=== PATIENT | female | born 1955 | race Caucasian/White ===

== ENCOUNTER 2016-07-02 00:02 | Inpatient (IN) | payer OTHER ==
[2016-07-02 10:06] LABS: % IMMATURE GRANULYOCYTES 0.2 % (0.0-1.1); ABSOLUTE IMMATURE GRANULOCYTES 0.01 10^3/uL (0.00-0.10); ADD DIFF? NO; ADD MORPH? NO; ADD SCAN? NO; ATYPICAL LYMPHOCYTE FLAG 0 (0-99); FRAGMENT RBC FLAG 0 (0-99); HEMATOCRIT 43.3 % (38.0-47.0); HEMOGLOBIN 14.1 g/dL (12.6-16.3); LEFT SHIFT FLG 0 (0-99); LIPEMIA HEMOLYSIS FLAG 80 (0-99); MEAN CELL HEMOGLOBIN 30.1 pg (27.9-34.1); MEAN CELL HEMOGLOBIN CONCENTR. 32.6 g/dL (32.4-36.7); MEAN CELL VOLUME 92.3 fL (81.5-99.8); MEAN PLATELET VOLUME 10.8 fL (8.7-11.7); PLATELET CLUMPS FLAG 20 (0-99); PLATELET COUNT 227 10^3/uL (150-400); RED BLOOD CELL COUNT 4.69 10^6/uL (4.18-5.33); RED CELL DISTRIBUTION WIDTH 15.4 % (11.5-15.2)
[2016-07-02 10:21] LABS: INR 2.78 (0.83-1.16); PROTIME(PATIENT) 29.7 SEC (12.0-15.0)
[2016-07-02 10:24] LABS: ANION GAP 10 mEq/L (8-16); CALCIUM 8.7 mg/dL (8.5-10.4); CARBON DIOXIDE 20 mEq/l (22-31); CHLORIDE 109 mEq/L (97-110); CREATININE 0.9 mg/dL (0.6-1.0); GLOMERULAR FILTRATION RATE > 60; GLUCOSE 105 mg/dL (70-100); POTASSIUM 4.9 mEq/L (3.5-5.2); SODIUM 139 mEq/L (134-144)
--- NOTE | 2016-07-02 10:35 | CPEKG ---
Heart Rate: 98 RR Interval: 612 P-R Interval: 220 QRSD Interval: 80 QT Interval: 380 QTC Interval: 486 P [place]: 65 QRS [place]: 136 T Wave [place]: 84 EKG Severity - ABNORMAL ECG - EKG Impression: SINUS RHYTHM EKG Impression: FIRST DEGREE AV BLOCK EKG Impression: RIGHT AXIS DEVIATION EKG Impression: Right ventricular conduction defect EKG Impression: Resolution of supraventricular tachycardia since April 04, 2016 EKG Impression: LOW VOLTAGE IN FRONTAL LEADS EKG Impression: NONSPECIFIC T ABNORMALITIES, ANT-LAT LEADS EKG Impression: BORDERLINE PROLONGED QT INTERVAL Electronically Signed By: aMrk Quinones 02-Jul-2016 12:11:50
--- NOTE | 2016-07-02 11:01 | PDCARPN ---
Cardiology Progress Note Chief Complaint: Patient reports ongoing palpitations. Assessment/Plan: Assessment: Please see Dr. Salazar's office note dated 06/04/2016 for H&P. 61-year-old female with significant past history that includes type A aortic dissection with history repair and aortic valve replacement (mechanical) 1992, CABG in 1992 for 2 vessel bypass due to aortic dissection, asthma and history of TIAs. Been noting to have persistent AFib in which she resumed originally controlled with amiodarone, but due to her age, is not an adequate candidate for long-term usage. Admitted today for transition to sotalol. She denies of any chest pain or pressure, shortness of breath, lightheadedness, near-syncope or syncopal events. Reporting occasional palpitation. Physical examination she appears to be euvolemic, denies of any symptoms suggesting cardiac ischemia. Initial EKG done, laboratory studies done showing no anemia, normal electrolyte and renal function. INR 2.78 today. Most recent echocardiogram was done on 02/14/2016 showing normal LV systolic function with no wall motion abnormalities, EF 50%, diastolic dysfunction LA moderate to severely dilated, RA moderately to severely dilated, moderate MR, mild TR, normal gradient across mechanical aortic valve. RVSP mildly elevated at 40 mm Hg. Plan: 1. Paroxysmal atrial fibrillation: Hospitalized for sotalol loading, has been off of amiodarone for minimum 48 hours. Will start her on sotalol at 80 mg p.o. q.day. Will resume her home dosing of warfarin with planning daily INRs during hospitalization. Plan 2 hours post dosing EKGs to evaluate QTC. 2. Valvular heart disease: No signs CHF. Continue on anticoagulation of warfarin. 3. Coronary bypass: Had 2 vessel bypass when fixing aortic dissection and aortic valve repair. Denies of any symptoms suggesting ischemia. 4. Code status: Patient is a full code patient seen with Dr. Carrizales. 07/02/16 10:57 Subjective: patient reports ongoing episodes palpitations come on spontaneously with very racing heart rate, then dissipate. Denies of any lightheadedness, chest pressure, shortness of breath, near-syncope, or syncopal events. Reviewed/Discussed With: family, other (Dr Carrizales) Objective: Vital Signs (8 Hrs) Temp Pulse Resp BP Pulse Ox 07/02/16 10:55 36.8 C 67 18 101/58 L 95 Intake/Output (24 Hrs) 07/01/16 07/02/16 07/03/16 05:59 05:59 05:59 Other: Weight 63.503 kg Result Diagrams: 07/02/16 10:00 07/03/16 03:48 - Physical Exam Constitutional: WDWN, healthy appearing, no apparent distress Ears, Nose, Mouth, Throat: moist mucous membranes Cardiovascular: regular rate and rhythm, systolic murmur ( Left sternal border. Also noted a mechanical valvular click.), pulses symmetric bilat, No no rubs, No jugular vein distention, No carotid bruit Peripheral Pulses: 1+: dorsalis-pedis (R), dorsalis-pedis (L), 2+: carotid (R), carotid (L) Respiratory: clear to auscultate bilat, no crackles, no wheezes Gastrointestinal: normoactive bowel sounds Skin: no rashes, no edema Neurologic: AAOx3 Psychiatric: cooperative, interactive, following commands ICD10 Worksheet Patient Problems: Problems Problem Status Onset Paroxysmal atrial fibrillation Acute - ICD10 Problem Qualifiers (1) Paroxysmal atrial fibrillation
[2016-07-02] MEDS: SOTALOL HCL 80 MG TAB PO SCH ×2 (11:02→21:16)
[2016-07-02] MEDS ORDERED: ACETAMINOPHEN 325 MG TAB PO PRN (11:33)
--- NOTE | 2016-07-02 14:03 | CPEKG ---
Heart Rate: 64 RR Interval: 938 P-R Interval: 212 QRSD Interval: 78 QT Interval: 448 QTC Interval: 463 P [place]: 73 QRS [place]: 135 T Wave [place]: 84 EKG Severity - ABNORMAL ECG - EKG Impression: SINUS RHYTHM EKG Impression: LEFT POSTERIOR FASCICULAR BLOCK EKG Impression: Can't entirely rule out old anteroseptal myocardial infarction. EKG Impression: Probable left atrial abnormality EKG Impression: No significant change from July 02, 2016, 10: 34 other than rate. Electronically Signed By: Mark Quinones 02-Jul-2016 15:20:24
[2016-07-02] MEDS ORDERED: WARFARIN SODIUM 2.5 MG TAB PO SCH (21:00)
[2016-07-02] MEDS: METOPROLOL SUCCINATE XR 50 MG TAB PO SCH (21:14)
[2016-07-02] MEDS: ZOLPIDEM TARTRATE 5 MG TAB PO SCH (21:14)
--- NOTE | 2016-07-02 22:59 | CPEKG ---
Heart Rate: 68 RR Interval: 882 P-R Interval: 204 QRSD Interval: 82 QT Interval: 448 QTC Interval: 477 P [place]: 69 QRS [place]: 139 T Wave [place]: 94 EKG Severity - ABNORMAL ECG - EKG Impression: SINUS RHYTHM EKG Impression: PROBABLE RVH W/ SECONDARY REPOL ABNORMALITY EKG Impression: NONSPECIFIC T ABNORMALITIES, DIFFUSE LEADS EKG Impression: Probable left atrial abnormality EKG Impression: No significant change from July 02, 2016, 14:01 EKG Impression: Can't entirely rule out old anteroseptal myocardial infarction EKG Impression: Left posterior fascicular block Electronically Signed By: Mark Quinones 03-Jul-2016 06:27:08
[2016-07-03 04:03] LABS: INR 2.69 (0.83-1.16); PROTIME(PATIENT) 28.9 SEC (12.0-15.0)
[2016-07-03 04:18] LABS: ANION GAP 8 mEq/L (8-16); CALCIUM 8.6 mg/dL (8.5-10.4); CARBON DIOXIDE 23 mEq/l (22-31); CHLORIDE 107 mEq/L (97-110); CREATININE 0.9 mg/dL (0.6-1.0); GLOMERULAR FILTRATION RATE > 60; GLUCOSE 94 mg/dL (70-100); MAGNESIUM 2.1 mg/dL (1.6-2.3); POTASSIUM 4.7 mEq/L (3.5-5.2); SODIUM 138 mEq/L (134-144)
[2016-07-03] MEDS: ESCITALOPRAM OXALATE 10 MG TAB PO SCH (08:58)
[2016-07-03] MEDS: SOTALOL HCL 80 MG TAB PO SCH ×2 (08:59→20:54)
--- NOTE | 2016-07-03 10:17 | PDCARPN ---
Cardiology Progress Note Chief Complaint: Patient reports she is tired of being hospilization Assessment/Plan: Assessment: 61-year-old female with significant past history that includes type A aortic dissection history of repair, aortic valve replacement (mechanical) and reimplantation of 2 vessel due to dissection in 1992, asthma, and history of TIAs. Noted to have history of persistent atrial fibrillation, recently controlled with amiodarone, but due to her age not an adequate candidate for long-term usage. Admitted to the hospital for sotalol loading, denies of any adverse effects with medication. Continuous cardiac monitoring shown before 1st dose of sotalol, 5-10 second runs of SVT, possibly atrial tachycardia. None noted since then. QTC last p.m., after 2 doses of sotalol was 476 milliseconds. No malignant arrhythmias noted. Laboratory studies today show INR 2.69, potassium 4.7, creatinine 0.9, magnesium 2.1. Did call patient's PCP , Dr. Quinones, any has given the okay to decrease her Lexapro to 5 mg p.o. daily due to potential a prolonged QTC. Plan: 1. Paroxysmal atrial fibrillation: No AFib noted since starting sotalol dosing. No further runs of SVT. QTC acceptable. Continue on current sotalol loading at 80 mg p.o. twice daily. INR within normal limits, continue on home dosing of warfarin. 2. Valvular heart disease: Past history of aortic valve replacement during aortic dissection, mechanical, INR within normal limits. No signs of CHF. 3. History of aortic dissection: Status post repair, BP within normal limits. 4. 2 vessel bypass: status post aortic dissection an aortic valve repair, denies of any symptoms suggesting of ischemia. Plan for patient to finish last 2 dosages of sotalol, with 2 are post dosage electrocardiograms, last dosage tonight at 11:00 p.m., will plan on her to be monitored on telemetry through the night, and discharge in a.m. stable 07/03/16 10:14 Subjective: Patient denies of any chest pain, shortness of breath, palpitations, orthopnea, PND, edema, near-syncope, or syncopal. Reviewed/Discussed With: other (Dr Carrizales) Objective: Vital Signs (8 Hrs) Temp Pulse Resp BP Pulse Ox 07/03/16 08:14 36.9 C 61 17 90/56 L 89 L 07/03/16 04:00 36.7 C 63 19 107/57 L 92 Intake/Output (24 Hrs) 07/02/16 07/03/16 07/04/16 05:59 05:59 05:59 Intake Total 700 Balance 700 Intake: Oral (ml) 700 Other: Weight 63.503 kg Intake Quantity Yes Sufficient Number of Voids Toilet 2 Result Diagrams: 07/02/16 10:00 07/03/16 03:48 - Physical Exam Constitutional: WDWN, healthy appearing Ears, Nose, Mouth, Throat: moist mucous membranes Cardiovascular: regular rate and rhythm, no rubs, systolic murmur (2/6 systolic murmur noted along left sternal border, mechanical valve click noted.), pulses symmetric bilat, No jugular vein distention Peripheral Pulses: 1+: dorsalis-pedis (R), dorsalis-pedis (L), 2+: carotid (R), carotid (L) Respiratory: clear to auscultate bilat, no crackles, no wheezes, No reduced air movement Gastrointestinal: normoactive bowel sounds Skin: warm, no edema Neurologic: AAOx3 Psychiatric: cooperative, interactive ICD10 Worksheet Patient Problems: Problems Problem Status Onset Paroxysmal atrial fibrillation Acute - ICD10 Problem Qualifiers (1) Paroxysmal atrial fibrillation
--- NOTE | 2016-07-03 11:51 | CPEKG ---
Heart Rate: 65 RR Interval: 923 P-R Interval: 216 QRSD Interval: 78 QT Interval: 456 QTC Interval: 475 P [place]: 77 QRS [place]: 128 T Wave [place]: 91 EKG Severity - ABNORMAL ECG - EKG Impression: SINUS RHYTHM EKG Impression: RIGHT AXIS DEVIATION EKG Impression: LOW VOLTAGE IN FRONTAL LEADS EKG Impression: NONSPECIFIC T ABNORMALITIES, ANT-LAT LEADS EKG Impression: No evidence of right ventricular hypertrophy compared to July 02, 2016 Electronically Signed By: Mark Quinones 03-Jul-2016 18:06:05
[2016-07-03] MEDS: ZOLPIDEM TARTRATE 5 MG TAB PO SCH (20:54)
[2016-07-03] MEDS: METOPROLOL SUCCINATE XR 50 MG TAB PO SCH (20:56)
[2016-07-03] MEDS ORDERED: WARFARIN SODIUM 2.5 MG TAB PO SCH (21:00)
--- NOTE | 2016-07-03 23:14 | CPEKG ---
Heart Rate: 68 RR Interval: 882 P-R Interval: 212 QRSD Interval: 78 QT Interval: 448 QTC Interval: 477 P [place]: 70 QRS [place]: 139 T Wave [place]: 72 EKG Severity - BORDERLINE ECG - EKG Impression: SINUS RHYTHM EKG Impression: ATRIAL PREMATURE COMPLEX EKG Impression: RIGHT AXIS DEVIATION EKG Impression: T ABNORMALITIES, DIFFUSE LEADS -- More pronounced compared to July 03, 2016, EKG Impression: 11:49 EKG Impression: Borderline first degree AV block Electronically Signed By: Mark Quinones 04-Jul-2016 06:39:05
[2016-07-04 05:30] LABS: INR 2.04 (0.83-1.16); PROTIME(PATIENT) 23.2 SEC (12.0-15.0)
[2016-07-04 05:42] LABS: ANION GAP 7 mEq/L (8-16); CALCIUM 8.8 mg/dL (8.5-10.4); CARBON DIOXIDE 24 mEq/l (22-31); CHLORIDE 106 mEq/L (97-110); GLOMERULAR FILTRATION RATE 56; GLUCOSE 89 mg/dL (70-100); POTASSIUM 4.7 mEq/L (3.5-5.2); SODIUM 137 mEq/L (134-144)
[2016-07-04 08:04] VITALS: RESP 19; O2SAT 90
[2016-07-04] MEDS: ESCITALOPRAM OXALATE 10 MG TAB PO SCH (09:00)
[2016-07-04] MEDS: SOTALOL HCL 80 MG TAB PO SCH (09:00)
--- NOTE | 2016-07-04 10:54 | CPEKG ---
Heart Rate: 63 RR Interval: 952 P-R Interval: 200 QRSD Interval: 74 QT Interval: 444 QTC Interval: 455 P [place]: 68 QRS [place]: 133 T Wave [place]: 85 EKG Severity - ABNORMAL ECG - EKG Impression: SINUS RHYTHM EKG Impression: Consider either old posterior myocardial infarction or right ventricular EKG Impression: hypertrophy EKG Impression: Poor R-wave progression. Consider possible old anteroseptal myocardial EKG Impression: infarction. EKG Impression: Probable left atrial abnormality EKG Impression: Right axis deviation EKG Impression: More upright T waves compared to July 03, 2016 Electronically Signed By: Mark Quinones 04-Jul-2016 12:19:47
[2016-07-04 11:49] VITALS: BP 106/56; PULSE 63; TEMP 97.6
--- NOTE | 2016-07-04 20:22 | GDS ---
[f rep st] DISCHARGE SUMMARY ADMISSION DIAGNOSES: 1. Paroxysmal atrial fibrillation. 2. Valvular heart disease with noted mechanical aortic valve. 3. History of type A aortic dissection with repair in 1992. 4. Two-vessel bypass during aortic repair. 5. History of asthma. 6. History of transient ischemic attack. DISCHARGE DIAGNOSES: 1. Paroxysmal atrial fibrillation, status post sotalol loading. 2. History of aortic valvular heart disease, status post mechanical aortic valve replacement in 3. 3. History of type A aortic dissection with repair of the aorta in 1992. 4. Two-vessel bypass when fixing aortic dissection in 1992. 5. Asthma. 6. History of transient ischemic attack. BRIEF HISTORY: Please see H and P. The patient is a 61-year-old female with significant past histo ry as mentioned above. She has been having persistent atrial fibrillation and was initially placed on amiodarone therapy for control. Due to her age, long-term necessity for antiarrhythmic therapy, it was felt that amiodarone long-term would be a poor choice for her. So, she was admitted [facility] for sotalol loading. HOSPITAL COURSE: Patient admitted to PCU, where she had general laboratory studies done, including electrocardiogram, and started on sotalol loading. She received 4 doses with 2-hour post electrocar diograms done, and had been on continuous cardiac monitoring. It had been noted initially that she had brief runs of what appeared to be atrial tachycardia for less than 10 seconds, but it soon subsi ded after starting antiarrhythmic therapy. PHYSICAL EXAMINATION: Done today. GENERAL APPEARANCE: Medium built, well-groomed female . She is alert, oriented to person, place, time, and situation. She appears to be under no acute d istress. VITAL SIGNS: Current vital signs are blood pressure of 106/56, heart rate of 63, sinus rh ythm on the monitor, respirations 19, saturating 92% on room air, temperature of 36.4 degrees Celsiu s. HEENT: Head is normocephalic. Lips are pink moist with no signs of cyanosis. Conjunctivae pin k. NECK: Trachea is midline, +2 carotid pulses bilateral. No auscultated bruits, no jugular vein distention. RESPIRATORY: Lungs clear to auscultation. No rhonchi, rales or wheezes. No accessory muscle use. No intercostal muscle retraction. CARDIAC: Systolic murmur noted along midsternal emerson rder, mechanical valve click noted. S1, S2, no S3, rubs or gallops noted. ABDOMEN: Soft, nontende r, bowel sounds x4 quadrants. No organomegaly, no palpable masses. SKIN: [place], warm, dry. No cya nosis, no clubbing. No peripheral edema. VASCULAR: +2 carotid pulses, bilateral +2 radial pulses bilateral, +1 dorsal pedal and posterior tibial pulses bilateral. NEURO: Cranial nerves 2-12 gross intact. LABORATORY STUDIES: Current laboratory studies, on the day of admission, 07/02, CBC showed WBC 4.14 , hemoglobin of 14.1, hematocrit of 43.3, and platelet count 227. INR was noted to be at 2.04 this morning. Sodium of 137, potassium 4.7, chloride 106, CO2 of 24, BUN 22, creatinine 1.0, glucose 89, calcium 8.8, magnesium 2.0. STUDIES: Electrocardiograms done 2 hours post dosing. Today's electrocardiogram done after a.m. do se of sotalol shows sinus rhythm, right axis deviation, poor R-wave progression in anterior leads, p ossible old septal WI. DISCHARGE DISPOSITION: Patient will be discharged home in stable condition. DISCHARGE MEDICATIONS: Please see discharge medication reconciliation sheet. Note that patient's h ome dose of metoprolol succinate has been decreased to 75 mg p.o. daily. She has been started on so talol 80 mg p.o. b.i.d. Due to potential of prolongation of QTc, her Lexapro has been decreased to 5 mg p.o. daily, after discussing with her PCP's office. Lastly, her INR was noted to be subtherape utic at 2.04 today. I did discuss this with [facility], and we have changed her current dosage to warfarin 5 mg p.o. every Saturday, Saturday, , Saturday and 2.5 every Saturday, Saturday, . DISCHARGE INSTRUCTIONS: Post sotalol antiarrhythmic discharge instructions gone over with the fabiolae enrrique, including monitoring for potential adverse reactions and followup. As for her valvular heart di lindae with mechanical valve, her INR is subtherapeutic, and adjustment has been made to her warfarin dosage including increasing tonight's dose to 5 mg. I have discussed this with [facility], an antony they will have her follow up on July 12 at 7:15 a.m. for repeat INR after dosage adjustment has been made. She will also follow up with Dr. Salazar, her primary gallery director on September 21. At th e time of discharge, the patient has verbalized understanding of all discharge instructions and had no questions. Total time spent on discharge greater than 30 minutes. /[id number]/MODL
== END 2016-07-04 13:00 | disposition home or self-care (01) | DRG 310 ==
LOC: F2W 08:55 → OBSVTOIN 11:10
PROVIDERS: ADMIT Internal Medicine Cardiovascular Disease; ATTEND Internal Medicine Cardiovascular Disease
DX: I48.1 Persistent atrial fibrillation (principal); I25.10 Atherosclerotic heart disease of native coronary artery without angina pectoris; Z95.1 Presence of aortocoronary bypass graft; Z95.2 Presence of prosthetic heart valve; Z86.73 Personal history of transient ischemic attack (TIA), and cerebral infarction without residual deficits; J45.909 Unspecified asthma, uncomplicated

== ENCOUNTER → 2016-11-12 | Outpatient (CLI) | payer OTHER | LOC: FIMAGING 15:01 | PROVIDERS: ATTEND Internal Medicine | DX: Z12.31 Encounter for screening mammogram for malignant neoplasm of breast (principal); Z80.3 Family history of malignant neoplasm of breast | CPT/HCPCS: G0202 ==

== ENCOUNTER 2016-12-07 19:53 | Emergency (ER) | payer OTHER ==
[2016-12-07 20:06] VITALS: RESP 18; O2SAT 92
--- NOTE | 2016-12-07 21:04 | EDPHY ---
H & P Stated Complaint: pt fell lac to right eyebrow, +etoh Time Seen by Provider: 12/07/16 20:22 HPI/ROS: Chief Complaint: Head injury HPI: 61-year-old female with a history of mechanical heart valve replacement, on Coumadin. Patient was at home tonight when she had a mechanical trip and fall, struck her forehead on the kitchen counter. Sustained a laceration there. Did not have a loss of conscious. Does state that she has been drinking some alcohol tonight. Thinks that this contribute to her fall. No nausea or vomiting. No vision or hearing changes. No neck pain. No numbness or tingling. Is up-to-date in her tetanus. Currently otherwise without complaints. Last INR a week ago 1.8 at that time. ROS: 10 point Review of Systems is negative except as noted in the HPI. PMH: Mechanical heart valve replacement Social History: No smoking, occasional alcohol, no recreational drug use Family History: non-contributory Physical Exam: Gen: Awake, Alert, Airway Intact HEENT: Head: She has a 3 cm laceration just above her right eyebrow. No bony step-offs or crepitus Eyes: PERRLA, EOMI Nose: No epistaxis Mouth: Normal dentition, Airway patent Face: No deformity Neck: non-tender, no stepoff, Full ROM without pain Chest: non-tender, lungs CTA Heart: normal heart tones Abd: soft, non-tender, atraumatic Pelvis: non-tender, stable to AP and Lateral compression Back: atraumatic, no midline tenderness Ext: atramatic, full ROM Skin: no rash Neuro: CN II-XII intact, Strength 5/5 in all extremities, sensation intact in all extremities - Personal History Current Tetanus Diphtheria and Acellular Pertussis (TDAP): Yes Tetanus Vaccine Date: 2014 - Medical/Surgical History Hx Asthma: No Hx Chronic Respiratory Disease: No Hx Diabetes: No Hx Cardiac Disease: Yes Hx Renal Disease: No Hx Cirrhosis: No Hx Alcoholism: No Hx HIV/AIDS: No Hx Splenectomy or Spleen Trauma: No Other PMH: 1991-aortic disection, mechanical valve, double bipass, - Social History Smoking Status: Former smoker Constitutional: Initial Vital Signs Temperature (C) 36.7 C 12/07/16 20:03 Heart Rate 81 12/07/16 20:03 Respiratory Rate 18 12/07/16 20:03 Blood Pressure 132/79 H 12/07/16 20:03 O2 Sat (%) 92 12/07/16 20:03 O2 Delivery Mode Room Air Allergies/Adverse Reactions: azithromycin Allergy (Verified 04/04/16 08:52) Home Medications: Medication Instructions Recorded Zolpidem Tartrate [Ambien 10 mg] 10 mg PO HS 07/02/16 Acetaminophen [Tylenol 325mg (*)] 650 mg PO Q4HRS PRN #0 tab 07/04/16 Metoprolol Succinate Xr [Toprol Xl 75 mg PO HS #45 tab 07/04/16 50 mg (*)] Sotalol HCl [Betapace 80 MG (*)] 80 mg PO BID #60 tab 07/04/16 Warfarin Sodium 2.5 mg PO SUMOFR #30 tablet 07/04/16 Warfarin Sodium 5 mg PO TUWETHSA #30 tablet 07/04/16 Medical Decision Making - Diagnostics Imaging Results: Imaging Impressions Head CT 12/07/16 20:34 Impression: 1. No acute intracranial abnormalities. 2. Laceration above right eye. 3. Chronic small vessel ischemic changes in the supratentorial white matter. 4. Mild age-related volume loss. Dr. Arrington discussed these findings by telephone with Benjy Spence MD at 12/07/2016 21:13. Imaging: Discussed imaging studies w/ scallop cutter Radiologist Procedures: Procedure: Laceration repair. Verbal consent was obtained from the patient. The 3 cm laceration on the right eyebrow was anesthetized in the usual fashion. The wound was irrigated, draped and explored to its base with a gloved finger. There were no deep structures involved. No tendon injury was identified. The wound was repaired with a layered closure. To, 5-0 horizontal mattress Vicryl sutures to close the deep to with, 9, 6-0 Ethilon simple interrupted sutures to close the skin.. The wound repair was complex. The procedure was performed by myself. Departure - Departure Disposition: Home, Routine, Self-Care Clinical Impression: Laceration, Head injury Condition: Good Instructions: Care For Your Stitches (ED), Laceration (ED), Head Injury (ED) Additional Instructions: Sutures need to be removed in 5 days. Return to the emergency department for increasing redness, discharge from the wound, fevers, chills, or any other concerns. Follow up with primary care physician in 5 days for suture removal. Referrals: Mark Quinones MD [Primary Care Provider] - As per Instructions
[2016-12-07] MEDS ORDERED: ACETAMINOPHEN 500 MG TAB PO ONE (22:21)
[2016-12-07 22:29] VITALS: BP 127/74; PULSE 80; TEMP 98.2
== END 2016-12-07 22:29 | disposition home or self-care (01) ==
PROC: 0HQ1XZZ Repair Face Skin, External Approach (ICD-10-PCS; principal; 2016-12-07)
DX: S01.111A Laceration without foreign body of right eyelid and periocular area, initial encounter (principal); S09.90XA Unspecified injury of head, initial encounter; W01.198A Fall on same level from slipping, tripping and stumbling with subsequent striking against other object, initial encounter; Y92.000 Kitchen of unspecified non-institutional (private) residence as the place of occurrence of the external cause; Y99.8 Other external cause status; Z79.01 Long term (current) use of anticoagulants; Z87.891 Personal history of nicotine dependence

== ENCOUNTER → 2017-02-04 | Outpatient (CLI) | payer OTHER | LOC: CIMAGING 08:09 | PROVIDERS: ATTEND Internal Medicine | DX: R94.5 Abnormal results of liver function studies (principal); K80.20 Calculus of gallbladder without cholecystitis without obstruction | CPT/HCPCS: 76700-PO ==

== ENCOUNTER → 2017-03-27 | Outpatient (CLI) | payer OTHER | LOC: FIMAGING 15:35 | PROVIDERS: ATTEND Internal Medicine | DX: R74.8 Abnormal levels of other serum enzymes (principal); R16.0 Hepatomegaly, not elsewhere classified; K76.0 Fatty (change of) liver, not elsewhere classified; K80.20 Calculus of gallbladder without cholecystitis without obstruction; I71.4 Abdominal aortic aneurysm, without rupture ==

== ENCOUNTER → 2017-10-11 | Outpatient (CLI) | payer OTHER ==
[~2017-10-11] MED LIST: IOPAMIDOL (ISOVUE 370) 100 ML BTL IV ONE
== END ==
LOC: FIMAGING 15:33
PROVIDERS: ATTEND Internal Medicine Cardiovascular Disease
DX: Z09 Encounter for follow-up examination after completed treatment for conditions other than malignant neoplasm (principal); Z86.79 Personal history of other diseases of the circulatory system; Z98.61 Coronary angioplasty status; Z95.2 Presence of prosthetic heart valve; Z95.828 Presence of other vascular implants and grafts
CPT/HCPCS: Q9967

== ENCOUNTER → 2018-03-11 | Outpatient (CLI) | payer OTHER | LOC: FIMAGING 14:24 | PROVIDERS: ATTEND Internal Medicine | DX: Z13.820 Encounter for screening for osteoporosis (principal); M81.0 Age-related osteoporosis without current pathological fracture; I38 Endocarditis, valve unspecified; Z78.0 Asymptomatic menopausal state; Z79.01 Long term (current) use of anticoagulants; Z92.241 Personal history of systemic steroid therapy ==